=== PATIENT | female | born 1970 | race Caucasian/White ===

== ENCOUNTER 2021-07-24 20:20 | Emergency (ER) | payer BC, OTHER ==
[~2021-07-24] VITALS: Ht 162.6 cm; Wt 77.3 kg
[2021-07-24 20:22] VITALS: TEMP 98.9
[2021-07-24] MEDS ORDERED: PRINIVIL20 MG PO (20:37)
[2021-07-24] MEDS ORDERED: MOBIC 7.5MG7.5 MG (20:38)
[2021-07-24 22:00] VITALS: BP 113/65; PULSE 97
== END 2021-07-24 22:04 | disposition home or self-care (01) ==
LOC: COL.ER 20:20 → EDBD 20:22 → COL.ER 20:22
DX: E86.0 Dehydration (principal)
CPT/HCPCS: J7030

== ENCOUNTER → 2021-08-16 | Outpatient (CLI) | payer OTHER ==
[~2021-08-16] MED LIST: MOBIC 7.5MG7.5 MG; PRINIVIL20 MG PO
== END ==
LOC: MC.RAD 13:11 → EDBD 13:11 → MC.RAD 13:15
DX: Z12.31 Encounter for screening mammogram for malignant neoplasm of breast (principal)